=== PATIENT | female | born 1980 | race American Indian/Alaskan Native ===

== ENCOUNTER 2022-01-08 05:29 | Inpatient (IN) | payer OTHER ==
[2022-01-06 14:02] LABS: Hemoglobin 12.3 gm/dl (10.1-14.3); Mean Corpuscular HGB Conc 33 % (30-34); Mean Corpuscular Volume 83 fl (79-97); Platelet Count 192 K/mm3 (140-440); Red Blood Count 4.47 M/mm3 (3.65-5.03); Red Cell Distribution Width 13.9 % (13.2-15.2)
[2022-01-06 14:18] LABS: Blood Urea Nitrogen 7 mg/dL (7-17); Calcium 8.8 mg/dL (8.4-10.2); Hemolysis Index 2
[2022-01-06 14:21] LABS: BUN/Creatinine Ratio 23
[2022-01-08] MEDS ORDERED: METOCLOPRAMIDE 10 MG/2 ML INJ IV ONE (06:34)
[2022-01-08] MEDS ORDERED: FAMOTIDINE 20 MG/2 ML INJ IV ONE (06:34)
[2022-01-08] MEDS ORDERED: BICITRA ORAL LIQD 30ML PO ONE (06:34)
[2022-01-08] MEDS ORDERED: LACTATED RINGERS 1,000 ML IV SCH (06:45)
[2022-01-08 06:55] LABS: Basophils % (Auto) 0.5 % (0.0-1.8); Eosinophils # (Auto) 0.1 K/mm3 (0.0-0.4); Eosinophils % (Auto) 0.7 % (0.0-4.3); Hematocrit 36.4 % (30.3-42.9); Hemoglobin 12.6 gm/dl (10.1-14.3); Lymphocytes # (Auto) 2.4 K/mm3 (1.2-5.4); Lymphocytes % (Auto) 31.7 % (13.4-35.0); Mean Corpuscular HGB Conc 35 % (30-34); Mean Corpuscular Volume 82 fl (79-97); Monocytes # (Auto) 0.7 K/mm3 (0.0-0.8); Monocytes % (Auto) 9.3 % (0.0-7.3); Platelet Count 185 K/mm3 (140-440); Red Blood Count 4.47 M/mm3 (3.65-5.03); Red Cell Distribution Width 14.2 % (13.2-15.2)
[2022-01-08] MEDS ORDERED: OXYTOCIN DRIP 30 UNITS/500 ML BAG IV SCH ×2 (07:00→11:40)
--- NOTE | 2022-01-08 07:03 | Anesthesia Day of Surgery ---
Anesthesia Day of Surgery - Day of Surgery Patient Examined: Yes Patient H&P Reviewed: Yes Patient is NPO: Yes
--- NOTE | 2022-01-08 07:03 | Anesthesia Consultation ---
Anesthesia Consult and Med Hx Date of service: 01/08/22 - Airway Anesthetic Teeth Evaluation: Good ROM Head & Neck: Adequate Mental/Hyoid Distance: Adequate Mallampati Class: Class II Intubation Access Assessment: Probably Good - Pulmonary Exam CTA: Yes - Cardiac Exam Cardiac Exam: RRR - Pre-Operative Health Status ASA Pre-Surgery Classification: ASA2 Proposed Anesthetic Plan: Spinal - Pulmonary Hx Asthma: No COPD: No - Cardiovascular System Hx Hypertension: No - Central Nervous System Hx Seizures: No Hx Psychiatric Problems: No - Endocrine Hx Renal Disease: No Hx End Stage Renal Disease: No Hx Hypothyroidism: No Hx Hyperthyroidism: No - Hematic Hx Anemia: No Hx Sickle Cell Disease: No - Other Systems Hx Alcohol Use: No Hx Cancer: No
[2022-01-08] MEDS ORDERED: ceFAZolin/Water 2 GM/20 ML 2 GM/20 ML SYRINGE IV ONE (07:34)
--- NOTE | 2022-01-08 07:42 | History and Physical Report ---
History of Present Illness Date of examination: 01/08/22 Date of admission: 01/08/22 05:29 Chief complaint: I'm here for my History of present illness: Pt is a 41 year old who presents for elective repeat at 39 weeks with EDC 01/14/22. Pt has had a course significant for gestational diabetes controlled with oral agents and advanced maternal age. She is GBS negative and all other labs are negative. Past History Past Medical History: diabetes (gestational) Past Surgical History: section (x 2) Family/Genetic History: diabetes, hypertension Social history: - Obstetrical History Expected Date of Delivery: 01/14/22 Actual Gestation: 39 Week(s) 1 Day(s) : 4 Para: 2 Number of Living Children: 2 Medications and Allergies Allergies Allergy/AdvReac Type Severity Reaction Status Date / Time No Known Allergies Allergy Verified 01/08/22 07:26 Home Medications Medication Instructions Recorded Confirmed Last Taken Type Vit-Fe Fumar-FA [ 1 tab PO QDAY 01/01/22 01/01/22 Unknown History Vitamin] glyBURIDE [Diabeta] 5 mg PO DAILY 01/01/22 01/01/22 Unknown History Active Meds: Active Medications Lactated Ringer's (Lactated Ringers) 1,000 mls @ 2,250 mls/hr IV PREOP MANI Stop: 01/09/22 07:12 Oxytocin/Sodium Chloride (Pitocin/Ns 30 Unit/500ml) 30 units in 500 mls @ 0 mls/hr IV TITR MANI; Protocol Review of Systems All systems: negative Gastrointestinal: abdominal pain Genitourinary: deferred Rectal Exam: deferred Integumentary: deferred - Vital Signs Vital signs: Vital Signs Temp Pulse Resp BP Pulse Ox 97.9 F 91 H 16 119/74 98 01/06/22 13:15 01/06/22 13:15 01/06/22 13:15 01/06/22 13:15 01/06/22 13:15 Temp Pulse Resp BP Pulse Ox 97.9 F 80 16 119/73 99 01/06/22 13:15 01/08/22 07:36 01/06/22 13:15 01/08/22 07:07 01/08/22 07:36 - Physical Exam Breasts: Positive: deferred Cardiovascular: Regular rate, Normal S1, Normal S2 Lungs: Positive: Clear to auscultation, Normal air movement Abdomen: Positive: normal appearance, soft, normal bowel sounds. Negative: d istention, tenderness Genitourinary (Female): Positive: normal external genitalia, normal perenium Vulva: both: normal Vagina: Positive: normal moisture. Negative: discharge Cervix: Negative: lesion, discharge Uterus: Positive: normal size, normal contour Adnexa: both: normal Anus/Rectum: Positive: normal perianal skin, heme negative. Negative: rectal mass, hemorrhoids Extremities: Deep Tendon Reflex Grade: Normal +2 - Obstetrical FHR: auscultation normal Cervical Dilatation: 0 Cervical Effacement Percentage: 0 station: -2 Uterine Contraction Pattern: Regular Results Result Diagrams: 01/08/22 06:00 01/06/22 13:15 Abnormal lab results 01/08/22 Range/Units 06:00 MCHC 35 H (30-34) % [place] % (Auto) 9.3 H (0.0-7.3) % All other labs normal. Assessment and Plan IUP at 39 weeks here for elective repeat . All consents signed and placed on chart. All questions answered. Will proceed as planned.
[2022-01-08] MEDS ORDERED: ceFAZolin/STERILE WATER 2 GM/20 ML SYRINGE IV ONE (07:50)
[2022-01-08] MEDS ORDERED: BUPIVACAINE/PF (0.5%) 5 MG/1 ML 30 ML VIAL INFILTRATI ONE (08:14)
[2022-01-08] MEDS ORDERED: dexAMETHasone 20 MG/5 ML VIAL ONE (08:14)
[2022-01-08] MEDS ORDERED: ONDANSETRON 4 MG/2 ML INJ ONE (08:14)
[2022-01-08] MEDS ORDERED: PHENYLEPHRINE/NS 1,000 MCG/10 ML SYRINGE (OR USE) IV ONE ×2 (08:14→08:39)
[2022-01-08] MEDS ORDERED: KETOROLAC 30 MG/1 ML INJ ONE (08:14)
[2022-01-08] MEDS ORDERED: WATER FOR IRRIG STERILE 1,500 ML BOTTLE IR ONE (08:16)
[2022-01-08] MEDS ORDERED: SODIUM CHLORIDE 0.9% IRR 1,500 ML BOTTLE IR ONE (08:16)
[2022-01-08] MEDS ORDERED: ePHEDrine SULFATE 50 MG/1 ML INJ ONE (09:34)
--- NOTE | 2022-01-08 09:48 | Procedure Note ---
OB Delivery Note - Delivery Date of Delivery: 01/08/22 Surgeon: NASEEM NICK Estimated blood loss: other (750) - Section Preop diagnosis: repeat Postop diagnosis: same section procedure: repeat low transverse Disposition: PACU Complications: other (extensive pelvic adhesions) Narrative: see op report - Infant A at 1 minute: 8 at 5 minutes: 9 Infant Gender: Male (3000 grams. 6 pounds 10 ounces)
--- NOTE | 2022-01-08 09:52 | Operative Report ---
Operative Report Operative Report: Preoperative diagnosis: Intrauterine at 39 and 1/7 weeks 2. Previous x2 Postoperative diagnosis: Same with extensive pelvic adhesions Procedure: Repeat low transverse section, lysis of adhesion Surgeon: Dr. Noemí Phillips EBL: 750 cc Urine output: 100 mL IV fluids: 1400 mL Findings: Viable male in the vertex presentation. Weight 6 lbs. 10 oz. 3000 g Apgars 8 and 9. Otherwise normal pelvic anatomy Specimens: None Complications: None Procedure: The patient was admitted to the OR with IV running and in place. She was properly identified as herself. She was given spinal anesthesia in the OR without difficulty. She was placed in the dorsal supine position with a leftward tilt. A [place] catheter was inserted. She was then prepped and draped in the normal sterile fashion. An Allis test was used to confirm adequate anesthesia. Once confirmed, the incision was made with the scalpel and carried to the underlying fascia using the scalpel and the Bovie. The fascia was incised in the midline and incision was extended bilaterally using the curved Saravia scissors. The fascia was then dissected from the underlying rectus muscles in a series of sharp and blunt dissection using the Saravia scissors. There was a large midline adhesion from the anterior wall of the uterus connecting to the posterior sheath of the rectus muscles. These adhesions had to be taken down slowly using sharp dissection and Bovie to fully enter the peritoneal cavity. A bladder blade was then placed into the incision to protect the bladder. A bladder flap was not created secondary to the minimal thickness of the lower uterine segment and no definite plane with which to create a bladder flap. Be hysterotomy incision was then made in the scalpel. Upon uterine entry, the amniotic sac was ruptured for clear fluid. The infant was then delivered without difficulty.. His mouth and nose were suctioned on the field. The cord was clamped and cut and he was handed to the waiting NICU personnel. The uterus was then exteriorized and cleared of all clots and debris. The hysterotomy incision was then closed in a running locked fashion using 0 Vicryl. Several layers of suture were used to properly reapproximate the uterus. The abdomen was then copiously irrigated with warm normal saline. Following this the uterus was replaced into the abdominal cavity. At this point the muscles were reapproximated in the midline using individual sutures of 0 Vicryl. Following this the fascia was closed in a running fashion using 0 Vicryl. Tissue was then copiously irrigated. Retention sutures were placed in the subcutaneous fat tissue Skin was closed in a running fashion using 3-0 Monocryl. The sponge lap needle and instrument counts were correct 2. The patient tolerated the procedure well. She was taken to recovery in stable condition.
[2022-01-08] MEDS ORDERED: NALOXONE 0.4 MG/1 ML INJ IV PRN (12:00)
[2022-01-08] MEDS ORDERED: D5W/LACTATED RINGERS 1,000 ML IV SCH (12:00)
[2022-01-08] MEDS ORDERED: ONDANSETRON 4 MG/2 ML INJ IV PRN (12:00)
[2022-01-08] MEDS ORDERED: WITCH HAZEL/ GLYCERIN PAD TP PRN (12:00)
[2022-01-08] MEDS ORDERED: MORPHINE 4 MG/1 ML INJ IV PRN (12:00)
[2022-01-08] MEDS ORDERED: LANOLIN/ZINC/DIMETHICONE (LANSINOH) 7 GM TP PRN (12:00)
[2022-01-08] MEDS ORDERED: MAGNESIUM HYDROXIDE (MOM) ORAL LIQD UDC PO PRN (22:00)
[2022-01-08] MEDS: SIMETHICONE 80 MG CHEW TAB PO PRN (22:25)
[2022-01-08 23:13] LABS: Hematocrit 32.2 % (30.3-42.9); Hemoglobin 10.9 gm/dl (10.1-14.3)
[2022-01-09] MEDS: oxyCODONE /ACETAMINOPHEN 5-325MG TAB PO PRN ×2 (04:17→16:47)
[2022-01-09] MEDS: IBUPROFEN 800 MG TAB PO PRN ×2 (07:30→20:09)
--- NOTE | 2022-01-09 11:41 | Post Anesthesia Evaluation ---
- Post Anesthesia Evaluation Patient Participated: Yes Airway Patent: Yes Stable Respiratory Function: Yes Nausea/Vomiting: No Temp > 96.8F: Yes Pain Manageable: Yes Adequeate Hydration: Yes Anesthesia Complications: No Block Receding Appropriately: Yes
[2022-01-09] MEDS: FERROUS SULFATE 325 MG TAB PO SCH (16:47)
[2022-01-09] MEDS: SIMETHICONE 80 MG CHEW TAB PO PRN (20:10)
[2022-01-10] MEDS: oxyCODONE /ACETAMINOPHEN 5-325MG TAB PO PRN ×3 (01:16→15:38)
[2022-01-10] MEDS: IBUPROFEN 800 MG TAB PO PRN ×2 (05:22→12:27)
[2022-01-10] MEDS: FERROUS SULFATE 325 MG TAB PO SCH (10:36)
--- NOTE | 2022-01-10 15:04 | Progress Note ---
Assessment and Plan POD 1 s/p rltcs. Doing well. Plan for discharge on tomorrow. Subjective - Subjective Date of service: 01/10/22 Interval history: Pt is a 41 year old who presents for elective repeat at 39 weeks with EDC 01/14/22. Pt has had a course significant for gestational diabetes controlled with oral agents and advanced maternal age. She is GBS negative and all other labs are negative. Patient reports: appetite normal, voiding normally, pain well controlled, ambulating normally : doing well Objective - Vital Signs Latest vital signs: Vital Signs Temp Pulse Resp BP Pulse Ox Pulse Ox 01/10/22 08:04 98.1 F 79 18 99/57 99 01/10/22 01:10 98.2 F 86 20 112/62 99 01/09/22 20:16 100 01/09/22 18:26 100 01/09/22 17:11 98.3 F 107 H 18 122/86 96 01/09/22 15:53 100 Intake and Output 01/10/22 01/10/22 01/10/22 06:59 14:59 22:59 Intake Total 240 120 Balance 240 120 Intake: Oral 240 120 Other: Total, Intake Amount 120 120 # Voids Void 1 1 - Exam Breasts: Present: deferred Cardiovascular: Present: Regular rate, Normal S1, Normal S2 Lungs: Present: Clear to auscultation, Normal air movement Abdomen: Present: normal appearance, soft, normal bowel sounds Vulva: both: normal Uterus: Present: normal, firm Extremities: Present: normal Deep Tendon Reflex Grade: Normal +2 Incision: Present: normal, dry, intact
--- NOTE | 2022-01-10 15:06 | Discharge Summary ---
Providers - Providers Date of Admission: 01/08/22 05:29 Date of discharge: 01/10/22 Attending physician: NASEEM NICK Primary care physician: NASEEM NICK Hospitalization Reason for admission: section Delivery: Procedure: repeat low transverse Episiotomy: none Incision: normal, dry, intact Other procedures: none complications: none Discharge diagnosis: IUP at term delivered [place] baby: male Condition at discharge: Good Disposition: 01 HOME / SELF CARE / HOMELESS Plan - Discharge Medications Prescriptions: Docusate Sodium [Colace] 100 mg PO BID #60 capsule Ibuprofen [Motrin] 800 mg PO Q8HR PRN #40 tablet PRN Reason: Pain, Moderate (4-6) oxyCODONE /ACETAMINOPHEN [Percocet 5/325] 2 tab PO Q6HR PRN #40 tablet PRN Reason: Pain - Provider Discharge Summary Activity: routine, no sex for 6 weeks, no heavy lifting 4 weeks, no strenuous exercise Diet: routine Instructions: routine Additional instructions: [] Smoking cessation referral if applicable(refer to patient education folder for contact #) [] Refer to [facility] Booklet Call your doctor immediately for: * Fever > 100.5 * Heavy vaginal bleeding ( >1 pad per hour) * Severe persistent headache * Shortness of breath * Reddened, hot, painful area to leg or breast * Drainage or odor from incision. * Keep incision clean and dry at all times and follow doctor's instructions regarding bathing/showering - Follow up plan Follow up: NASEEM NICK MD [Primary Care Provider] - 14 Days
[2022-01-10 16:18] VITALS: BP 121/72
== END 2022-01-10 16:50 | disposition home or self-care (01) | DRG 788 ==
LOC: APU 05:29 → OB 11:16
PROVIDERS: ADMIT Obstetrics & Gynecology; ATTEND Obstetrics & Gynecology
PROC: 10D00Z1 Extraction of Products of Conception, Low, Open Approach (ICD-10-PCS; principal; 2022-01-08)
DX: O34.211 Maternal care for low transverse scar from previous cesarean delivery (principal); Z3A.39 39 weeks gestation of pregnancy; Z20.822 Contact with and (suspected) exposure to COVID-19; Z37.0 Single live birth; O99.62 Diseases of the digestive system complicating childbirth; K66.0 Peritoneal adhesions (postprocedural) (postinfection); O24.425 Gestational diabetes mellitus in childbirth, controlled by oral hypoglycemic drugs
CPT/HCPCS: 36415; 80048; 82962; 85014; 85018; 85025; 85027; 86592; 86850; 86900; 86901; 87806; 99211; G0378; J3490; J7060; J7121; C1765; G0463; J0690; J1100; J1885; J2270; J2370; J2405; J2765; U0003